=== PATIENT | female | born 1980 | race Caucasian/White ===

== ENCOUNTER 2017-02-23 12:57 | Emergency (ER) | payer OTHER ==
[~2017-02-23 12:57] MED LIST: MOBIC7.5 MG PO; NOHOMEMEDS; PROVENTIL17 GM
== END 2017-02-23 14:00 | disposition left against medical advice (07) ==
LOC: EME 12:57
DX: R07.9 Chest pain, unspecified (principal); Z53.21 Procedure and treatment not carried out due to patient leaving prior to being seen by health care provider

== ENCOUNTER 2017-03-06 08:03 | Emergency (ER) | payer OTHER ==
[~2017-03-06] VITALS: Ht 154.9 cm; Wt 50.7 kg
[2017-03-06] MEDS ORDERED: SERTRALINE HCL100 MG PO (08:27)
[2017-03-06] MEDS ORDERED: VYVANSE30 MG PO (08:27)
[2017-03-06] MEDS ORDERED: FLEXERIL10 MG PO (10:05)
[2017-03-06] MEDS ORDERED: ULTRAM50 MG PO (10:05)
[2017-03-06] MEDS ORDERED: LIDODERM 5% P1 PATCH TD (10:05)
[2017-03-06 10:26] VITALS: BP 125/81
== END 2017-03-06 10:27 | disposition home or self-care (01) ==
LOC: EME 08:03
DX: M54.16 Radiculopathy, lumbar region (principal); J45.909 Unspecified asthma, uncomplicated; F17.200 Nicotine dependence, unspecified, uncomplicated; R11.0 Nausea
CPT/HCPCS: 72100; 99281; 99283; J1885

== ENCOUNTER 2017-09-05 08:57 | Emergency (ER) | payer OTHER ==
[~2017-09-05] VITALS: Ht 160 cm; Wt 53.0 kg
[~2017-09-05 08:57] MED LIST changes: +FLEXERIL10 MG PO; +LIDODERM 5% P1 PATCH TD; +SERTRALINE HCL100 MG PO; +ULTRAM50 MG PO; +VYVANSE30 MG PO
[2017-09-05] MEDS ORDERED: NAPROSYN500 MG PO (12:18)
[2017-09-05] MEDS ORDERED: ULTRAM50 MG PO (12:20)
[2017-09-05 12:29] VITALS: BP 124/79
== END 2017-09-05 12:32 | disposition home or self-care (01) ==
LOC: EME 08:57
DX: S70.02XA Contusion of left hip, initial encounter (principal); S50.02XA Contusion of left elbow, initial encounter; V28.1XXA Motorcycle passenger injured in noncollision transport accident in nontraffic accident, initial encounter; J45.909 Unspecified asthma, uncomplicated; F17.200 Nicotine dependence, unspecified, uncomplicated; Z88.5 Allergy status to narcotic agent
CPT/HCPCS: 73080; 73502; 73552; 99281; 99283

== ENCOUNTER → 2018-03-15 | Outpatient (CLI) | payer OTHER ==
[~2018-03-15] MED LIST changes: +ATARAX10 MG PO; +NAPROSYN500 MG PO; +PREMARIN0.625 MG PO
[2018-03-17 15:13] LABS: Flow Clinical Information NOT PROVIDED (()); Flow Number of Markers 22 (()); Flow Spec Viability 66 % (())
== END | disposition home or self-care (01) ==
LOC: RAD 10:00 → EDSTATUS 10:00
PROVIDERS: Internal Medicine Pulmonary Disease
PROC: 07B33ZX Excision of Right Upper Extremity Lymphatic, Percutaneous Approach, Diagnostic (ICD-10-PCS; principal; 2018-03-15)
DX: R91.1 Solitary pulmonary nodule (principal)
CPT/HCPCS: 76942; 88305